=== PATIENT | female | born 1995 | race African-American/Black ===

== ENCOUNTER 2018-03-28 05:05 | Emergency (ER) | payer OTHER ==
[~2018-03-28] VITALS: Ht 167.6 cm; Wt 99.8 kg
[~2018-03-28 05:05] MED LIST: HYDR-3229 PO; [UNRECOGNIZED DRUG - OTHER] TP
[2018-03-28 05:12] VITALS: BP 112/88
--- NOTE | 2018-03-28 05:16 | NUR ---
Amb to BED 11.
--- NOTE | 2018-03-28 05:21 | NUR ---
Dr. De Paz evaluating patient at bedside.
--- NOTE | 2018-03-28 05:23 | NUR ---
23/F PRESENTS TO ED, C/O 09/07 R EAR PAIN, X3 HRS. PT STATED SHE WOKE UP TO THE PAIN. PT REPORTS TAKING 1200MG IBUPROFEN WITH LITTLE RELIEF. DENIES FEVER, N/V. STATED THAT SHE HAS HAD COLD SYMPTOMS THAT PAST 3 WEEKS. PT AOX4, GCS 15, RR EVEN AND UNLABORED. HX ASTHMA
[2018-03-28] MEDS ORDERED: AMOXICILLIN 500 MG CAP PO ONE (05:25)
[2018-03-28] MEDS ORDERED: KETOROLAC 30 MG/ML VIAL IM ONE (05:25)
[2018-03-28 06:00] VITALS: BP 112/88
--- NOTE | 2018-03-28 06:00 | NUR ---
Patient discharged with v/s stable. Written and verbal after care instructions given and explained. Patient alert, oriented and verbalized understanding of instructions. Ambulatory with steady gait. All questions addressed prior to discharge. ID band removed. Patient advised to follow up with PMD. Rx of amoxicillin, motrin, tramadol given. Patient educated on indication of medication including possible reaction and side effects. Opportunity to ask questions provided and answered.
== END 2018-03-28 06:00 | disposition home or self-care (01) ==
LOC: MED 05:05
DX: H66.91 Otitis media, unspecified, right ear (principal); J45.909 Unspecified asthma, uncomplicated; Z79.899 Other long term (current) drug therapy
CPT/HCPCS: 96372; 99283; J1885

== ENCOUNTER 2018-05-26 19:39 | Emergency (ER) | payer OTHER ==
[~2018-05-26] VITALS: Ht 167.6 cm; Wt 102.1 kg
[2018-05-26 19:44] VITALS: BP 112/71
--- NOTE | 2018-05-26 19:48 | NUR ---
PT AMBULATORY TO ER LOBBY W/ STEADY GAIT IN STABLE CONDITION.
[2018-05-26 20:49] LABS: APPEARANCE,URINE SL CLOUDY (CLEAR); BILIRUBIN,URINE NEGATIVE (NEGATIVE); BLOOD, URINE TRACE-I (NEGATIVE); COLOR,URINE YELLOW (YELLOW); LEUKOCYTE ESTERASE ,URINE 2+ (NEGATIVE); NITRITE, URINE NEGATIVE (NEGATIVE); UGLUCOSE NEGATIVE (NEGATIVE)
--- NOTE | 2018-05-26 21:07 | NUR ---
PT TAKEN TO BED 7
--- NOTE | 2018-05-26 21:11 | NUR ---
Patient being evaluated by physician at bedside.
[2018-05-26 21:14] LABS: WBC,URINE TOO MANY TO COUNT /HPF (0-5)
[2018-05-26 21:29] LABS: BASOPHILS # (AUTO) 0.1 K/uL (0.00-0.22); BASOPHILS % (AUTO) 1.1 % (0.0-2.0); EOSINOPHILS # (AUTO) 0.2 K/uL (0-0.4); EOSINOPHILS % (AUTO) 2.7 % (0.0-4.0); HEMATOCRIT 41.4 % (36-48); HEMOGLOBIN 13.8 g/dL (12.0-16.0); LYMPHOCYTES # (AUTO) 2.4 K/uL (2.5-16.5); LYMPHOCYTES % (AUTO) 35.4 % (20.5-51.1); MEAN CORPUSCULAR HEMOGLOBIN 30 pg (27-31); MEAN CORPUSCULAR HGB CONC 33 g/dL (33-37); MEAN CORPUSCULAR VOLUME 89.8 fL (80-94); MONOCYTES # (AUTO) 0.5 K/uL (0.8-1.0); MONOCYTES % (AUTO) 8.1 % (1.7-9.3); NEUTROPHILS # (AUTO) 3.5 K/uL (1.8-7.7); NEUTROPHILS % (AUTO) 52.7 % (42.2-75.2); PLATELET COUNT (AUTO) 322 K/uL (140-450); RED BLOOD CELL COUNT(AUTO) 4.61 MIL/uL (4.20-5.40); RED CELL DISTRIBUTION WIDTH 13.7 % (11.6-13.7); WHITE BLOOD COUNT (AUTO) 6.7 K/uL (4.8-10.8)
--- NOTE | 2018-05-26 21:48 | NUR ---
PT TO ED WITH C/O PAINFUL URINATION X THIS AM. PT DENIES VAGINAL DISCHARGE OR BLEEDING. NO BLADDER DISTENTION NOTED. PT PLACED INTO BED, PENDING MD RIVERA.
[2018-05-26 21:51] LABS: ANION GAP 12.4 (8-16); CARBON DIOXIDE 27.6 mmol/L (21-32); CREATININE 0.7 mg/dL (0.6-1.3)
--- NOTE | 2018-05-26 23:16 | NUR ---
Ultrasound at bedside.
--- NOTE | 2018-05-26 23:16 | NUR ---
Natty guerra in [facility] - 05/26/18 at 2316 by ENMANUEL X-Ray at bedside.
[2018-05-26 23:40] VITALS: BP 114/72
== END 2018-05-26 23:40 | disposition home or self-care (01) ==
LOC: MED 19:39
DX: O23.41 Unspecified infection of urinary tract in pregnancy, first trimester (principal); J45.909 Unspecified asthma, uncomplicated; Z3A.01 Less than 8 weeks gestation of pregnancy; Z79.899 Other long term (current) drug therapy
CPT/HCPCS: 36415; 76801; 80048; 81001; 81025; 84702; 85025; 86900; 86901; 87086; 99284; Q0092

== ENCOUNTER 2018-12-19 20:38 | Emergency (ER) | payer OTHER ==
[~2018-12-19] VITALS: Ht 167.6 cm; Wt 101.2 kg
[2018-12-19 21:50] VITALS: BP 125/88
--- NOTE | 2018-12-19 21:58 | NUR ---
PT TRIAGED, SENT BACK TO LOBBY AWAITING FOR BED
[2018-12-19 22:58] LABS: APPEARANCE,URINE CLOUDY (CLEAR); BILIRUBIN,URINE NEGATIVE (NEGATIVE); BLOOD, URINE 3+ (NEGATIVE); COLOR,URINE DARK YELLOW (YELLOW); LEUKOCYTE ESTERASE ,URINE TRACE (NEGATIVE); NITRITE, URINE POSITIVE (NEGATIVE); UGLUCOSE NEGATIVE (NEGATIVE)
--- NOTE | 2018-12-19 23:40 | NUR ---
PT AMNULATED TO ER BED 5
--- NOTE | 2018-12-19 23:55 | NUR ---
DR. LYNN BEDSIDE EVALUATING PT
[2018-12-20] MEDS ORDERED: PHENAZOPYRIDINE 100 MG TAB PO ONE
--- NOTE | 2018-12-20 | NUR ---
PT C/O SUPRAPUBIC PAIN, BLOOD IN URINE, URINARY FREQUENCY AND URINARY HESITENCY. PT C/O RT SIDED FLANK PAIN. DENIES FEVER. NO FURTHER COMPLAINTS. PT CALM AND PLEASANT. VSS. MEDHX: ASTHMA ALLERGIES: DENIES
[2018-12-20 00:08] VITALS: BP 125/88
--- NOTE | 2018-12-20 00:08 | NUR ---
DISCHARGE PAPERS GIVEN TO PT. VSS. RX OF CIPRO, NAPROSYN, AND PHEAZOPYRIDINE HCL GIVEN. SIDE EFFECTS EXPLAINED. INSTRUCTED TO F/U WITH PCP AND WHEN TO RETURN TO ER. PT VERBALLIZED UNDERSTANDING OF DC INSTRUCTIONS. ALL QUESTIONS ANSWERED.
[2018-12-20 00:57] LABS: RBC,URINE TOO NUMEROUS TO COUN /HPF (0-5); WBC,URINE TOO MANY TO COUNT /HPF (0-5)
== END 2018-12-20 00:08 | disposition home or self-care (01) ==
LOC: MED 20:38
DX: N39.0 Urinary tract infection, site not specified (principal); J45.909 Unspecified asthma, uncomplicated; Z79.899 Other long term (current) drug therapy
CPT/HCPCS: 81001; 81002; 81025; 87086; 87186; 99282; 99283